=== PATIENT | female | born 1985 | race Hispanic/Latino ===

== ENCOUNTER 2017-10-10 16:25 | Emergency (ER) | payer SELFPAY ==
[2017-10-10] MEDS ORDERED: Ketorolac Tromethamine 30 MG/ML VIAL ONE (18:55)
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
== END 2017-10-10 19:53 | disposition home or self-care (01) ==
LOC: ERS 16:25
DX: S20.219A Contusion of unspecified front wall of thorax, initial encounter (principal); V44.5XXA Car driver injured in collision with heavy transport vehicle or bus in traffic accident, initial encounter
CPT/HCPCS: 71010; 72040; 72100; 81025; 96372; J1885